=== PATIENT | female | born 1995 | race African-American/Black ===

== ENCOUNTER 2019-05-26 19:16 | Emergency (ER) | payer MEDICAID ==
[~2019-05-26] VITALS: Ht 157.5 cm; Wt 57.6 kg
[2019-05-26 19:30] VITALS: BP 138/94
[2019-05-26 19:40] LABS: BILIRUBIN,URINE NEGATIVE (NEG); CLARITY,URINE CLOUDY; COLOR,URINE YELLOW; NITRITE,URINE POSITIVE (NEG); PROTEIN,URINE 100 mg/dL (NEG-TRACE); UROBILINOGEN,URINE 0.2 mg/dL (0.2 mg/dL)
[2019-05-26 19:48] LABS: BACTERIA,URINE MODERATE /HPF (0-FEW); RBC,URINE >40 /HPF (0-2); WBC,URINE TNTC /HPF (0-4)
[2019-05-26] MEDS ORDERED: CEPH500C PO (20:16)
[2019-05-26] MEDS ORDERED: PHEN100T82 PO (20:16)
--- NOTE | 2019-05-26 20:16 | PHYS DOC ---
Past Medical History Past Medical History: No Pertinent History (HAILEE ALVES DO) Additional Past Surgical Histo: D&C (HAILEE ALVES DO) Smoking: Cigarettes Alcohol Use: None Drug Use: None (HAILEE ALVES DO) Adult General Chief Complaint Chief Complaint: PAIN ON URINATION [facility] HPI Patient is a 24 year old AA female who presents to the emergency department with complaints of dysuria, low back pain, suprapubic pain after urination, and increased urinary frequency that has progressively gotten worse over the last 5 days. She denies any irregular vaginal discharge, vomiting, diarrhea, or abdominal pain. She denies any fever, but reports generalized fatigue and just not feeling well. She currently rates her discomfort a 5 out of 10 on the pain scale, there are no alleviating factors. (BEN PAZ APRN) Review of Systems Review of Systems Constitutional: Denies fever or chills [] Eyes: Denies change in visual acuity, redness, or eye pain [] HENT: Denies nasal congestion or sore throat [] Respiratory: Denies cough or shortness of breath [] Cardiovascular: No additional information not addressed in HPI [] GI: Denies abdominal pain, vomiting,or diarrhea; reports nausea and decreased appetite : see HPI Musculoskeletal: Denies joint pain; reports low back pain bilat Integument: Denies rash or skin lesions [] Neurologic: Denies headache Complete systems were reviewed and found to be within normal limits, except as documented in this note. (BEN PAZ APRN) Allergies Allergies Allergies Coded Allergies Type Severity Reaction Last Updated Verified No Known Drug Allergies 05/26/19 No (HAILEE ALVES DO) Physical Exam Physical Exam Constitutional: Well developed, well nourished, no acute distress, non-toxic appearance. [] HENT: Normocephalic, atraumatic, bilateral external ears normal, oropharynx moist, no oral exudates, nose normal. [] Eyes: PERRLA, EOMI, conjunctiva normal, no discharge. [] Neck: Normal range of motion, no tenderness, supple, no stridor. [] Cardiovascular:Heart rate regular rhythm Lungs & Thorax: Respirations even and unlabored, no retractions, no respiratory distress Abdomen: soft, no tenderness, no masses, no pulsatile masses. [] Skin: Warm, dry, no erythema, no rash. [] Back: No tenderness, bilateral CVA tenderness. [] Extremities: No cyanosis, ROM intact Neurologic: Alert and oriented X 3, no focal deficits noted. [] Psychologic: Affect normal, judgement normal, mood normal. [] (BEN PAZ APRN) Current Patient Data Vital Signs Vital Signs Date Time Temp Pulse Resp B/P (MAP) Pulse Ox O2 Delivery O2 Flow Rate FiO2 05/26/19 19:30 98.6 84 16 138/94 (109) 100 Room Air 98.6 (HAILEE ALVES DO) Lab Values Laboratory Tests Test 05/26/19 19:25 05/26/19 19:28 Urine Collection Type Void Urine Color Yellow Urine Clarity Cloudy Urine pH 6.0 Urine Specific [place] 1.015 Urine Protein 100 mg/dL (NEG-TRACE) Urine Glucose (UA) Negative mg/dL (NEG) Urine Ketones (Stick) Negative mg/dL (NEG) Urine Blood Large (NEG) Urine Nitrite Positive (NEG) Urine Bilirubin Negative (NEG) Urine Urobilinogen Dipstick 0.2 mg/dL (0.2 mg/dL) Urine Leukocyte Esterase Large (NEG) Urine RBC >40 /HPF (0-2) Urine WBC Tntc /HPF (0-4) Urine Squamous Epithelial Cells None /LPF Urine Bacteria Moderate /HPF (0-FEW) POC Urine HCG, Qualitative Hcg negative (Negative) (HAILEE ALVES DO) EKG EKG [] (BEN PAZ APRN) Radiology/Procedures Radiology/Procedures [] (BEN PAZ APRN) Course & Med Decision Making Course & Med Decision Making Pertinent Labs and Imaging studies reviewed. (See chart for details) [] (BEN PAZ APRN) Dragon Disclaimer Dragon Disclaimer This electronic medical record was generated, in whole or in part, using a voice recognition dictation system. (BEN PAZ APRN) Departure Departure Impression: Primary Impression: Urinary tract infection Additional Impression: Dysuria Disposition: HOME, SELF-CARE Condition: STABLE Patient Instructions: Pyelonephritis, Adult, [id number] Additional Instructions: Fill prescription(s) and use as directed. Avoid bladder irritants such as caffeine, carbonation, and spicy foods. Increase clear fluids. Follow up with yo justin primary care doctor if symptoms persist, return to the ER if symptoms worsen. 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 I was available for consultation as needed during the patient's visit in the emergency department. I agree with the clinical impression, plan, and disposition. (HAILEE ALVES DO) Problem Qualifiers Primary Impression: Urinary tract infection Urinary tract infection type: acute pyelonephritis Qualified Codes: N10 - Acute pyelonephritis BEN PAZ APRN May 26, 2019 20:16 HAILEE ALVES DO May 27, 2019 04:09
== END 2019-05-26 20:35 | disposition home or self-care (01) ==
LOC: ER 19:16
DX: N10 Acute pyelonephritis (principal); F17.210 Nicotine dependence, cigarettes, uncomplicated
CPT/HCPCS: 81001; 81025; 87086; 99284

== ENCOUNTER 2019-06-26 13:59 | Emergency (ER) | payer MEDICAID ==
[~2019-06-26] VITALS: Ht 157.5 cm; Wt 60.8 kg
[~2019-06-26 13:59] MED LIST: CEPH500C PO; PHEN100T82 PO
[2019-06-26 14:45] VITALS: BP 138/83
[2019-06-26] MEDS ORDERED: CYCL10TA2 PO (15:35)
[2019-06-26] MEDS ORDERED: NAPR-514 PO (15:35)
--- NOTE | 2019-06-26 15:36 | PHYS DOC ---
Past Medical History Past Medical History: No Pertinent History Past Surgical History: Other Additional Past Surgical Histo: D&C Alcohol Use: None Drug Use: None Adult General Chief Complaint Chief Complaint: BACK PAIN - NO INJURY HPI HPI Patient is a 24 year old AA female who presents to the ER with complaints of R upper back pain for the last 2-3 days without injury. Pt states that last night the pain increased and was so severe that she could not sleep. She denies any numbness, tingling, or weakness of RUE. Pt denies any shortness of breath, cough, fever, ear pain, or sore throat. Currently, her pain is a 8.5/10, she denies any alleviating or exacerbating factors. Review of Systems Review of Systems Constitutional: Denies fever or chills [] Eyes: Denies redness, or eye pain [] HENT: Denies nasal congestion or sore throat [] Respiratory: Denies cough or shortness of breath [] Cardiovascular: No additional information not addressed in HPI [] GI: Denies abdominal pain, nausea, vomiting, or diarrhea [] : Denies dysuria or hematuria [] Musculoskeletal: see HPI Integument: Denies rash or skin lesions [] Neurologic: Denies headache, focal weakness or sensory changes [] Complete systems were reviewed and found to be within normal limits, except as documented in this note. Allergies Allergies Allergies Coded Allergies Type Severity Reaction Last Updated Verified No Known Drug Allergies 05/26/19 No Physical Exam Physical Exam Constitutional: Well developed, well nourished, no acute distress, non-toxic appearance. [] HENT: Normocephalic, atraumatic, bilateral external ears normal, nose normal. [] Eyes: PERRLA, EOMI, conjunctiva normal, no discharge. [] Neck: Normal range of motion, no stridor. [] Cardiovascular:Heart rate regular rhythm, no murmur [] Lungs & Thorax: Bilateral breath sounds clear to auscultation [] Skin: Warm, dry, no erythema, no rash. [] Back: R trapezius TTP, no bony tenderness Extremities: No cyanosis, no clubbing, ROM intact, no edema. [] Neurologic: Alert and oriented X 3, no focal deficits noted. [] Psychologic: Affect normal, judgement normal, mood normal. [] Current Patient Data Vital Signs Vital Signs Date Time Temp Pulse Resp B/P (MAP) Pulse Ox O2 Delivery O2 Flow Rate FiO2 06/26/19 14:45 98.0 66 16 138/83 (101) 100 Room Air 98.0 EKG EKG [] Radiology/Procedures Radiology/Procedures [] Course & Med Decision Making Course & Med Decision Making Pertinent Labs and Imaging studies reviewed. (See chart for details) [] Dragon Disclaimer Dragon Disclaimer This electronic medical record was generated, in whole or in part, using a voice recognition dictation system. Departure Departure Impression: Primary Impression: Trapezius muscle strain Disposition: HOME, SELF-CARE Condition: STABLE Referrals: NO PCP (PCP) Patient Instructions: Back Pain, Adult, [id number] Additional Instructions: Fill the prescriptions and use as directed. Apply heat or ice to sore areas as needed for comfort. Follow up with your primary care doctor in 1-2 days, return to the ER if symptoms worsen. Scripts Naproxen (NAPROXEN) 500 Mg Tablet 1 TAB PO BID PRN for PAIN for 10 Days, #20 TAB 0 Refills Prov: BEN PAZ APRN 06/26/19 Cyclobenzaprine Hcl (CYCLOBENZAPRINE HCL) 10 Mg Tablet 1 TAB PO TID PRN for PAIN for 10 Days, #30 TAB 0 Refills Prov: BEN PAZ APRN 06/26/19 Problem Qualifiers Primary Impression: Trapezius muscle strain Encounter type: initial encounter Laterality: right Qualified Codes: S46.811A - Strain of other muscles, fascia and tendons at shoulder and upper arm level, right arm, initial encounter BEN PAZ APRN Jun 26, 2019 15:36
== END 2019-06-26 15:45 | disposition home or self-care (01) ==
LOC: ER 13:59
DX: S46.811A Strain of other muscles, fascia and tendons at shoulder and upper arm level, right arm, initial encounter (principal); M54.6 Pain in thoracic spine; X58.XXXA Exposure to other specified factors, initial encounter; Y93.89 Activity, other specified; Y92.89 Other specified places as the place of occurrence of the external cause; Y99.8 Other external cause status
CPT/HCPCS: 99283; 99284